=== PATIENT | female | born 1945 | race African-American/Black ===

== ENCOUNTER 2022-07-15 02:54 | Emergency (ER) | payer MEDICAID ==
[~2022-07-15] VITALS: Ht 162.6 cm; Wt 88.0 kg
[~2022-07-15 02:54] MED LIST: AMLO10TA4 PO; ASPI-1497 PO; ATEN1TAB42 PO; CHLO25TA2 PO; LOSA1TAB34 MT; [UNRECOGNIZED DRUG - CODE] MT
[2022-07-15 02:57] VITALS: BP 153/70
[2022-07-15] MEDS ORDERED: ACETAMINOPHEN 325MG TABLET PO ONE (05:30)
== END 2022-07-15 07:35 | disposition home or self-care (01) ==
LOC: ER 02:54
DX: S00.83XA Contusion of other part of head, initial encounter (principal); I10 Essential (primary) hypertension; E11.9 Type 2 diabetes mellitus without complications; Z86.73 Personal history of transient ischemic attack (TIA), and cerebral infarction without residual deficits; Z79.82 Long term (current) use of aspirin; V43.62XA Car passenger injured in collision with other type car in traffic accident, initial encounter; Y93.89 Activity, other specified; Y92.488 Other paved roadways as the place of occurrence of the external cause
CPT/HCPCS: 99284